=== PATIENT | male | born 1975 | race Caucasian/White ===

== ENCOUNTER 2016-10-10 18:13 | Observation (INO) | payer OTHER ==
[2016-10-10 19:02] LABS: % IMMATURE GRANULYOCYTES 1.5 % (0.0-1.1); ABSOLUTE IMMATURE GRANULOCYTES 0.21 10^3/uL (0.00-0.10); ABSOLUTE NRBC COUNT 0.03 10^3/uL (0-0.01); ADD DIFF? NO; ADD MORPH? NO; ADD SCAN? NO; ATYPICAL LYMPHOCYTE FLAG 0 (0-99); FRAGMENT RBC FLAG 0 (0-99); HEMATOCRIT 27.2 % (40.0-51.0); HEMOGLOBIN 9.3 g/dL (13.7-17.5); LEFT SHIFT FLG 10 (0-99); LIPEMIA HEMOLYSIS FLAG 90 (0-99); MEAN CELL HEMOGLOBIN 30.1 pg (27.9-34.1); MEAN CELL HEMOGLOBIN CONCENTR. 34.2 g/dL (32.4-36.7); MEAN PLATELET VOLUME 9.6 fL (8.7-11.7); NRBC-AUTO% 0.2 % (0.0-0.2); PLATELET CLUMPS FLAG 0 (0-99); PLATELET COUNT 272 10^3/uL (150-400); RED BLOOD CELL COUNT 3.09 10^6/uL (4.40-6.38); RED CELL DISTRIBUTION WIDTH 13.2 % (11.5-15.2)
--- NOTE | 2016-10-10 19:07 | EDPHY ---
HPI/HX/ROS/PE/MDM Narrative: CHIEF COMPLAINT: Black stool, near syncope, nausea. HISTORY OF PRESENT ILLNESS: The patient is a 41-year-old male who presents with 3 days of black stools and a near syncopal episode today. The stools were normal until today when they became tarry. He made an appointment to see his PCP but felt nauseated and had a near syncopal episode this morning. He had cold sweats while lying in bed. He denies abdominal pain, chest pain, shortness of breath. No fever, palpitations, vomiting, urinary complaints, headache, lightheadedness. He did drink a large amount of alcohol this weekend. REVIEW OF SYSTEMS: Aside from elements discussed in the HPI, a comprehensive 10-point review of systems was reviewed and is negative. PAST MEDICAL HISTORY: ADD, hypertension. SOCIAL HISTORY: Moderate alcohol use, smokes cigarettes. VITAL SIGNS: Reviewed by me GENERAL: Well-developed, well-nourished, resting comfortably in no respiratory distress. HEENT: Atraumatic. Eyes: No icterus, no injection. No conjunctival pallor. Mouth: moist mucous membranes. No erythema or lesions. Neck: supple with no adenopathy. LUNGS: Clear to auscultation bilaterally, no wheezes, rhonchi or rales. CARDIAC: Regular rate and rhythm, no rubs, murmurs or gallops. ABDOMEN: Soft, nontender, nondistended, bowel sounds normal. BACK: No CVA tenderness. RECTAL: Melenotic stool. EXTREMITIES: No trauma. No edema. Range of motion is normal throughout. NEURO: Alert and oriented, grossly nonfocal. SKIN: Warm and dry, no rash. PSYCHIATRIC: Normal mentation, no agitation. Portions of this note were transcribed by a medical records assistant. I personally performed a history, physical exam, medical decision making, and confirmed accuracy of information the transcribed note. ED Course: 41-year-old male presents with 3 days of black stool and a near syncopal episode earlier today. His stools were initially formed but became tarry diarrhea today. He tried to go to the doctor but had a near syncopal episode at his house. He reports that he was nauseated, had cold sweats, and was tachycardic at that time. I performed a rectal exam and sent the stool to the lab. His heart rate was 122 on presentation. I have high suspicion for GI bleed in this patient. He is a binge drinker and did drink a large amount of alcohol this weekend. We will check blood work and obtain an EKG. An IV was established. Patient's WBC elevated at 14.44. He is anemic as well, Hgb 9.3 and Hct 27.2. Stool lab returns positive for blood. Plan for admission. 2027: Consulted with Dr. Akbar, gastroenterology. He will consult with the patient in the hospital. 2044: Consulted with Dr. Funez, hospitalist. He accepts admission. The differential diagnosis for the patient's lower GI bleeding included but was not limited to diverticulosis, tumor, AVM, hemorrhoid, and upper GI Bleed. - Data Points Laboratory Results: Laboratory Results 10/10/16 18:55 10/10/16 18:55 10/10/16 10/10/16 10/10/16 19:20 19:18 18:55 WBC RBC Hgb Hct MCV MCH MCHC RDW Plt Count MPV Neut % (Auto) Lymph % (Auto) Riley % (Auto) Eos % (Auto) Baso % (Auto) Nucleat RBC Rel Count Absolute Neuts (auto) Absolute Lymphs (auto) Absolute Monos (auto) Absolute Eos (auto) Absolute Basos (auto) Absolute Nucleated RBC Immature Gran % Immature Gran # Sodium 132 mEq/L L mEq/L (134-144) Potassium 3.6 mEq/L mEq/L (3.5-5.2) Chloride 103 mEq/L mEq/L (97-110) Carbon Dioxide 22 mEq/l mEq/l (22-31) Anion Gap 7 mEq/L L mEq/L (8-16) BUN 43 mg/dL H mg/dL (7-23) Creatinine 1.0 mg/dL mg/dL (0.7-1.3) Estimated GFR > 60 Glucose 104 mg/dL H mg/dL (70-100) Calcium 8.4 mg/dL L mg/dL (8.5-10.4) Stool Occult Bld Scrn POSITIVE H (NEGATIVE) Patient ABO/Rh O POSITIVE Antibody Screen NEGATIVE 10/10/16 18:55 WBC 14.44 10^3/uL H 10^3/uL (3.80-9.50) RBC 3.09 10^6/uL L 10^6/uL (4.40-6.38) Hgb 9.3 g/dL L g/dL (13.7-17.5) Hct 27.2 % L % (40.0-51.0) MCV 88.0 fL fL (81.5-99.8) MCH 30.1 pg pg (27.9-34.1) MCHC 34.2 g/dL g/dL (32.4-36.7) RDW 13.2 % % (11.5-15.2) Plt Count 272 10^3/uL 10^3/uL (150-400) MPV 9.6 fL fL (8.7-11.7) Neut % (Auto) 76.6 % H % (39.3-74.2) Lymph % (Auto) 17.4 % % (15.0-45.0) Riley % (Auto) 4.1 % L % (4.5-13.0) Eos % (Auto) 0.1 % L % (0.6-7.6) Baso % (Auto) 0.3 % % (0.3-1.7) Nucleat RBC Rel Count 0.2 % % (0.0-0.2) Absolute Neuts (auto) 11.07 10^3/uL H 10^3/uL (1.70-6.50) Absolute Lymphs (auto) 2.51 10^3/uL 10^3/uL (1.00-3.00) Absolute Monos (auto) 0.59 10^3/uL 10^3/uL (0.30-0.80) Absolute Eos (auto) 0.02 10^3/uL L 10^3/uL (0.03-0.40) Absolute Basos (auto) 0.04 10^3/uL 10^3/uL (0.02-0.10) Absolute Nucleated RBC 0.03 10^3/uL H 10^3/uL (0-0.01) Immature Gran % 1.5 % H % (0.0-1.1) Immature Gran # 0.21 10^3/uL H 10^3/uL (0.00-0.10) Sodium Potassium Chloride Carbon Dioxide Anion Gap BUN Creatinine Estimated GFR Glucose Calcium Stool Occult Bld Scrn Patient ABO/Rh Antibody Screen General Time Seen by Provider: 10/10/16 18:59 Initial Vital Signs: Initial Vital Signs Temperature (C) 36.7 C 10/10/16 18:26 Heart Rate 122 H 10/10/16 18:26 Respiratory Rate 18 10/10/16 18:26 Blood Pressure 133/105 H 10/10/16 18:26 O2 Sat (%) 98 10/10/16 18:26 O2 Delivery Mode Room Air Allergies/Adverse Reactions: No Known Allergies Allergy (Verified 10/10/16 20:48) Home Medications: Medication Instructions Recorded Dextroamphetamine/Amphetamine 15 - 30 mg PO DAILY 10/10/16 [ADDERALL 15 MG TABLET] Herbals/Supplements -Info Only 1 ea PO DAILY 10/10/16 Zolpidem Tartrate 5 - 10 mg PO HS 10/10/16 Pantoprazole Sodium [Protonix 40mg 40 mg PO BID #60 tab 10/12/16 (*)] Pantoprazole Sodium [Protonix 40mg 40 mg PO DAILY #30 tab 10/12/16 (*)] Departure - Departure Disposition: [facility] Inpatient Acute Clinical Impression: Near syncope GI bleed Qualifiers: GI bleed type/associated pathology: unspecified gastrointestinal hemorrhage type Qualified Code(s): K92.2 - Gastrointestinal hemorrhage, unspecified Anemia Qualifiers: Anemia type: unspecified type Qualified Code(s): D64.9 - Anemia, unspecified Condition: Fair Report Scribed for: Alexsandra Francisco Report Scribed by: John Reane Date of Report: 10/10/16 Time of Report: 19:07
[2016-10-10 19:12] LABS: ANION GAP 7 mEq/L (8-16); CALCIUM 8.4 mg/dL (8.5-10.4); CARBON DIOXIDE 22 mEq/l (22-31); CHLORIDE 103 mEq/L (97-110); GLOMERULAR FILTRATION RATE > 60; GLUCOSE 104 mg/dL (70-100); POTASSIUM 3.6 mEq/L (3.5-5.2); SODIUM 132 mEq/L (134-144)
[2016-10-10] MEDS ORDERED: PANTOPRAZOLE SODIUM 40 MG in NS 100 ML IV ONE (20:17)
--- NOTE | 2016-10-10 21:02 | CPEKG ---
Heart Rate: 84 RR Interval: 714 P-R Interval: 132 QRSD Interval: 98 QT Interval: 416 QTC Interval: 492 P Newton: 66 QRS Newton: 23 T Wave Newton: 21 EKG Severity - BORDERLINE ECG - EKG Impression: SINUS RHYTHM EKG Impression: BORDERLINE PROLONGED QT INTERVAL Electronically Signed By: Alexsandra Francisco 10-Oct-2016 21:36:46
[2016-10-10] MEDS ORDERED: chlordiazePOXIDE 25 MG CAP PO PRN (22:09)
[2016-10-10] MEDS ORDERED: ONDANSETRON 4 MG/2 ML VIAL IVP PRN (22:11)
[2016-10-10] MEDS ORDERED: NS 1,000 ML IV SCH (22:15)
[2016-10-11] MEDS: LORazepam 2 MG/ML INJ IVP PRN ×2 (00:36→19:47)
[2016-10-11 01:07] LABS: HEMATOCRIT 20.9 % (40.0-51.0); HEMOGLOBIN 7.1 g/dL (13.7-17.5)
--- NOTE | 2016-10-11 02:27 | GHP ---
[f rep st] HISTORY AND PHYSICAL DATE OF ADMISSION: 10/10/2016 CHIEF COMPLAINT: Tarry stools. HISTORY: The patient is a 41-year-old male, who has noticed his stools are black for the last 3 day s. Initially, they were formed, but they have subsequently become loose for the last 24 hours. He called his primary care doctor with an intent to see him for outpatient evaluation, but on his way, he developed a near-syncopal episode with nausea and cold sweats, and instead he presented to the ergency room. There has been no abdominal pain, but he does feel like his abdomen feels firm. Ther e has been no weight loss. He did drink quite a bit of alcohol this weekend because he went to open on Monday, but his typical alcohol use is mostly social, with just happy hour s and with friends. PAST MEDICAL HISTORY: Negative. MEDICATIONS: None. ALLERGIES: No known drug allergies. SOCIAL HISTORY: He smokes socially. He drinks socially. He lives alone. He works in [employer], which is a [employer] business. REVIEW OF SYSTEMS: Complete review of systems obtained. Review of systems is negative regarding co nstitutional, HEENT, GI, pulmonary, cardiovascular, , hematology, skin, musculoskeletal, endocrine , psychiatric, except for positives and negatives as in HPI. FAMILY HISTORY: Reviewed and noncontributory to presenting complaint. PHYSICAL EXAMINATION: GENERAL: Well-developed, well-nourished male, in no acute distress. VITAL S IGNS: Temperature is 36.7, pulse 122, blood pressure 140/87, saturating 97% on room air. EYE EXAMI NATION: Normal conjunctivae. Pupils react light. ENT: Normal ears and nose. Hearing intact. No rmal lips and teeth. Oropharynx moist. NECK: Trachea is midline. No thyromegaly. CHEST: Normal respiratory effort. LUNGS: Clear to auscultation bilaterally. CARDIOVASCULAR SYSTEM: Regular ra te and rhythm. No murmur. No lower extremity edema. ABDOMEN: Soft, nontender. No hepatosplenome farheen. SKIN: Warm, dry, intact. No rash. MUSCULOSKELETAL: No cyanosis or clubbing. Strength 5/5 , upper and lower extremities. NEURO EXAMINATION: Cranial nerves intact. Normal sensation to ligh t touch. PSYCH ASSESSMENT: Alert and oriented x3. Normal mood and affect. Normal judgment and in sight. Normal memory. LABORATORY DATA: White count 14.44, hematocrit 27.2, platelets 272. Sodium 132, potassium 3.6, chl oride 103, bicarb 22, BUN 43, creatinine 1, glucose 104. IMAGING STUDIES: EKG viewed by me. My personal interpretation is normal sinus rhythm. No ST or T- wave changes. This case was discussed with Dr. Francisco, emergency room physician, regarding need for admission. She did consult Gastroenterology and spoke with Dr. Akbar, who will see the patient. ASSESSMENT AND PLAN: 1. Upper gastrointestinal bleed. Gastroenterology is consulted and anticipate EGD in the morning. I will keep him n.p.o. We will place him on IV proton pump inhibitor. 2. Acute blood loss anemia. Continue to follow his serial H and H. 3. Leukocytosis. I suspect this is reactive and I do not see any signs of infection. This will be followed. 4. Alcohol use. I suspect this is just modest alcohol and I highly doubt he will undergo withdrawa l or that he has any underlying liver disease. I will, however, check his LFTs. 5. Obesity. BMI 35. He was previously on a weight loss drug, but is not taking it currently. CODE STATUS: Full. ADMISSION STATUS: We will admit to observation and depending on clinical course, we may be able to discharge tomorrow. DVT PROPHYLAXIS: He is low risk and he is presenting with GI bleed, so I would hold off on any phar macologic prophylaxis at this time. /[id number]/MODL
[2016-10-11 05:28] LABS: % IMMATURE GRANULYOCYTES 1.1 % (0.0-1.1); ABSOLUTE IMMATURE GRANULOCYTES 0.09 10^3/uL (0.00-0.10); ABSOLUTE NRBC COUNT 0.02 10^3/uL (0-0.01); ADD DIFF? NO; ADD MORPH? NO; ADD SCAN? NO; ATYPICAL LYMPHOCYTE FLAG 10 (0-99); FRAGMENT RBC FLAG 0 (0-99); HEMATOCRIT 20.7 % (40.0-51.0); LEFT SHIFT FLG 0 (0-99); LIPEMIA HEMOLYSIS FLAG 90 (0-99); MEAN CELL HEMOGLOBIN 30.4 pg (27.9-34.1); MEAN CELL HEMOGLOBIN CONCENTR. 33.8 g/dL (32.4-36.7); MEAN PLATELET VOLUME 9.8 fL (8.7-11.7); NRBC-AUTO% 0.2 % (0.0-0.2); PLATELET CLUMPS FLAG 0 (0-99); PLATELET COUNT 198 10^3/uL (150-400); RED CELL DISTRIBUTION WIDTH 13.3 % (11.5-15.2)
[2016-10-11 05:42] LABS: ALANINE AMINOTRANSFERASE 54 IU/L (21-72); ALBUMIN 2.5 g/dL (3.5-5.0); ALKALINE PHOSPHATASE 39 IU/L (38-126); ANION GAP 5 mEq/L (8-16); ASPARTATE AMINOTRANSFERASE 41 IU/L (17-59); BILIRUBIN,TOTAL 0.3 mg/dL (0.1-1.4); BILIRUBIN-CONJUGATED 0.2 mg/dL (0.0-0.5); BILIRUBIN-UNCONJUGATED 0.1 mg/dL (0.0-1.1); CALCIUM 7.6 mg/dL (8.5-10.4); CARBON DIOXIDE 21 mEq/l (22-31); CHLORIDE 110 mEq/L (97-110); CREATININE 0.9 mg/dL (0.7-1.3); GLOMERULAR FILTRATION RATE > 60; GLUCOSE 88 mg/dL (70-100); INR 1.02 (0.83-1.16); MAGNESIUM 1.9 mg/dL (1.6-2.3); POTASSIUM 3.9 mEq/L (3.5-5.2); PROTIME(PATIENT) 13.3 SEC (12.0-15.0); SODIUM 136 mEq/L (134-144); TOTAL PROTEIN 4.6 g/dL (6.3-8.2)
[2016-10-11] MEDS: ACETAMINOPHEN 325 MG TAB PO PRN ×2 (08:29→17:53)
[2016-10-11] MEDS: PANTOPRAZOLE SODIUM 40 MG in NS 100 ML IV SCH ×2 (08:30→19:47)
[2016-10-11] MEDS: NICOTINE 14 MG/24 HR PATCH TD SCH (08:47)
[2016-10-11] MEDS: AMPHETAMINE PO SCH (08:47)
[2016-10-11] MEDS: DEXTROAMPHETAMINE PO SCH (08:47)
--- NOTE | 2016-10-11 10:17 | HOSPPROG ---
Hospitalist Progress Note Assessment/Plan: 41 yo M w likely UGIB UGIB: suspect bleeding has stopped given falling bun and stable hct etiology is likely nsaids and alcohol egd today bid ppi acute blood loss anemia: 2/2 ugib give 1 unit now alcohol: suspect heavy social use w low risk of withdrawal but will follow htn: outpt follow up proph: pharm VTE proph contraindicated low risk for VTE dispo: pending results of egd Subjective: no vomiting or further black stool. case d/w dr disla. no events tele (interp by me) Objective: Vital Signs Temp Pulse Resp BP Pulse Ox 36.6 C 97 16 133/81 H 98 10/11/16 07:18 10/11/16 07:18 10/11/16 07:18 10/11/16 07:18 10/11/16 07:18 Laboratory Results 10/11/16 05:05 10/11/16 05:05 10/10/16 10/11/16 10/12/16 05:59 05:59 05:59 Intake Total 1600 Output Total 600 Balance 1000 PT 13.3 SEC (12.0-15.0) 10/11/16 05:05 INR 1.02 (0.83-1.16) 10/11/16 05:05 - Physical Exam Constitutional: no apparent distress, appears nourished Eyes: PERRL, anicteric sclera Ears, Nose, Mouth, Throat: moist mucous membranes, hearing normal Cardiovascular: regular rate and rhythym, no murmur, rub, or gallop, No tachycardia Respiratory: no respiratory distress, no rales or rhonchi Gastrointestinal: normoactive bowel sounds, soft, non-tender abdomen Genitourinary: no bladder fullness, No seth in urethra Skin: warm, normal color Musculoskeletal: full muscle strength, no muscle tenderness Neurologic: AAOx3 ICD10 Worksheet Patient Problems: Problems Problem Status Onset Anemia Acute GI bleed Acute Near syncope Acute
[2016-10-11] MEDS ORDERED: MIDAZOLAM 2 MG/2 ML VIAL ONE (12:20)
[2016-10-11] MEDS ORDERED: fentaNYL 100 MCG/2 ML INJ ONE (12:23)
[2016-10-11] MEDS ORDERED: PROPOFOL 200 MG/20 ML VIAL ONE ×3 (12:23)
[2016-10-11] MEDS ORDERED: LIDOCAINE 2% 5 ML SDV ONE (12:28)
--- NOTE | 2016-10-11 12:45 | SOAPPROG ---
SOAP Progress Note Assessment/Plan: Assessment:EGD shows MW tear with fresh clot. Able to close defect with one Resolution clip. No active bleeding noted. Plan:Zofran q4 x 24 hour, either IV or SL. 4 weeks of PPIs. OK to go home when stable. 10/11/16 12:44 Objective: Vital Signs Temp Pulse Resp BP Pulse Ox 36.6 C 93 18 136/83 H 97 10/11/16 11:08 10/11/16 11:08 10/11/16 11:08 10/11/16 11:08 10/11/16 11:08 Laboratory Results 10/11/16 05:05 10/11/16 05:05 10/10/16 10/11/16 10/12/16 05:59 05:59 05:59 Intake Total 1600 356 Output Total 600 Balance 1000 356 PT 13.3 SEC (12.0-15.0) 10/11/16 05:05 INR 1.02 (0.83-1.16) 10/11/16 05:05 ICD10 Worksheet Patient Problems: Problems Problem Status Onset Anemia Acute GI bleed Acute Near syncope Acute
[2016-10-11] MEDS: ONDANSETRON 4 MG/2 ML VIAL IVP SCH ×3 (14:49→20:45)
--- NOTE | 2016-10-11 16:14 | GPN ---
[f rep st] PROCEDURE NOTE PROCEDURE PERFORMED: Gastroscopy with biopsies and endoclipping. INDICATIONS: The patient is a 41-year-old male who was admitted yesterday with melena and a hemoglo bin which was 9.3, down from 15.4 earlier in the year. The patient had had an episode of binge drin dipak earlier in the week. He has also had some nausea. He takes Advil and aspirin regularly. Mai roscopy is being performed to evaluate and treat. DESCRIPTION OF PROCEDURE: After proper consent was obtained, patient was placed in left lateral dec ubitus position, received IV general anesthesia. Video gastroscope was introduced through the mouth, down the esophagus, into the stomach, past the p ylorus, into the duodenal. Findings were as follows: 1. Esophagus is normal with no varices noted. 2. The patient has a 3 cm hiatal hernia sac within which is a Josie-Linder tear. It is not active ly bleeding, but has some fresh clot on it. An Endo clip was used to bridge the tear and close it. No bleeding was seen after this. The remainder of the stomach appeared normal as did the duodenum. Biopsies were taken to rule out H pylori. At this point, instrument was removed. The patient tolerated procedure well. He was returned to re covery room in stable condition. RECOMMENDATIONS: 1. Patient should stay on proton pump inhibitors for a month. 2. I would have the patient take Zofran either IV or sublingual every 4 hours for the next 24 hours to prevent any retching leading to early re-tearing. 3. Patient should avoid excessive usage of aspirin and Advil products. Copy requested to: Dr. Rowland /[id number]/MODL
[2016-10-12 00:03] VITALS: RESP 18
[2016-10-12] MEDS: ONDANSETRON 4 MG/2 ML VIAL IVP SCH ×2 (02:04→06:28)
[2016-10-12 04:54] LABS: % IMMATURE GRANULYOCYTES 1.4 % (0.0-1.1); ABSOLUTE IMMATURE GRANULOCYTES 0.11 10^3/uL (0.00-0.10); ABSOLUTE NRBC COUNT 0.05 10^3/uL (0-0.01); ADD DIFF? NO; ADD MORPH? NO; ADD SCAN? NO; ATYPICAL LYMPHOCYTE FLAG 0 (0-99); FRAGMENT RBC FLAG 0 (0-99); HEMATOCRIT 24.8 % (40.0-51.0); HEMOGLOBIN 8.3 g/dL (13.7-17.5); LEFT SHIFT FLG 10 (0-99); LIPEMIA HEMOLYSIS FLAG 80 (0-99); MEAN CELL HEMOGLOBIN 29.9 pg (27.9-34.1); MEAN CELL HEMOGLOBIN CONCENTR. 33.5 g/dL (32.4-36.7); MEAN CELL VOLUME 89.2 fL (81.5-99.8); MEAN PLATELET VOLUME 9.8 fL (8.7-11.7); NRBC-AUTO% 0.6 % (0.0-0.2); PLATELET CLUMPS FLAG 0 (0-99); PLATELET COUNT 218 10^3/uL (150-400); RED BLOOD CELL COUNT 2.78 10^6/uL (4.40-6.38); RED CELL DISTRIBUTION WIDTH 14.7 % (11.5-15.2)
[2016-10-12 05:22] LABS: ANION GAP 5 mEq/L (8-16); CALCIUM 8.3 mg/dL (8.5-10.4); CARBON DIOXIDE 24 mEq/l (22-31); CHLORIDE 110 mEq/L (97-110); GLOMERULAR FILTRATION RATE > 60; GLUCOSE 92 mg/dL (70-100); POTASSIUM 3.8 mEq/L (3.5-5.2); SODIUM 139 mEq/L (134-144)
[2016-10-12] MEDS: ACETAMINOPHEN 325 MG TAB PO PRN (06:32)
[2016-10-12] MEDS: THIAMINE HCL 500 MG in NS 100 ML IV SCH ×2 (06:54→07:58)
[2016-10-12] MEDS: NICOTINE 14 MG/24 HR PATCH TD SCH (07:36)
[2016-10-12] MEDS: AMPHETAMINE PO SCH (07:36)
[2016-10-12] MEDS: DEXTROAMPHETAMINE PO SCH (07:36)
[2016-10-12 07:46] VITALS: BP 134/79; PULSE 92; TEMP 98; O2SAT 96
[2016-10-12] MEDS: PANTOPRAZOLE SODIUM 40 MG in NS 100 ML IV SCH (07:46)
[2016-10-12] MEDS ORDERED: ADDERALL 10 MG TAB PO SCH (09:00)
--- NOTE | 2016-10-12 09:36 | HOSPPROG ---
Hospitalist Progress Note Assessment/Plan: 41 yo M w likely UGIB UGIB: suspect bleeding has stopped given falling bun and stable hct etiology is likely nsaids and alcohol egd today bid ppi acute blood loss anemia: 2/2 ugib give 1 unit now alcohol: suspect heavy social use w low risk of withdrawal but will follow htn: outpt follow up proph: pharm VTE proph contraindicated low risk for VTE dispo: home today > 30 minutes Subjective: hct stable. eating Objective: Vital Signs Temp Pulse Resp BP Pulse Ox 36.7 C 92 18 134/79 H 96 10/12/16 07:45 10/12/16 07:45 10/12/16 07:45 10/12/16 07:45 10/12/16 07:45 Laboratory Results 10/12/16 04:21 10/12/16 04:21 10/11/16 10/12/16 10/13/16 05:59 05:59 05:59 Intake Total 1600 2586 Output Total 600 2 Balance 1000 2584 PT 13.3 SEC (12.0-15.0) 10/11/16 05:05 INR 1.02 (0.83-1.16) 10/11/16 05:05 - Physical Exam Constitutional: no apparent distress, appears nourished Eyes: PERRL, anicteric sclera Ears, Nose, Mouth, Throat: moist mucous membranes, hearing normal Cardiovascular: regular rate and rhythym, no murmur, rub, or gallop, No tachycardia Respiratory: no respiratory distress, no rales or rhonchi Gastrointestinal: normoactive bowel sounds, soft, non-tender abdomen Genitourinary: No seth in urethra Skin: warm, normal color Musculoskeletal: full muscle strength, no muscle tenderness Neurologic: AAOx3 ICD10 Worksheet Patient Problems: Problems Problem Status Onset Anemia Acute GI bleed Acute Near syncope Acute
--- NOTE | 2016-10-12 09:56 | GDS ---
[f rep st] DISCHARGE SUMMARY DISCHARGE DIAGNOSES: 1. Upper gastrointestinal bleed secondary to Josie-Linder tear. 2. Acute blood loss anemia. Please see admission history and physical by Dr. Ceci Jackson. The patient presented with melena and shortness of breath. He had some binge style alcohol behavior over the weekend, may have had so me vomiting. It sounds like he drinks a couple days a week. He takes intermittent NSAIDs as well. He had the aforementioned study showing a Josie-Linder tear and some diffuse gastritis. He receiv ed 1 unit of packed red cells for a hemoglobin of 7.1, it came up to 8.3. Iron studies were not sen t. Coags were normal. LFTs were normal. The patient was discharged home with a twice daily PPI fo r 1 month and then 2 months of daily PPI. Advised to moderate his binge style alcohol behavior. Di d not have alcohol withdrawal here. I do not suspect he is an alcoholic. /[id number]/MODL
[2016-10-13] MEDS ORDERED: THIAMINE HCL 100 MG TAB PO SCH (09:00)
== END 2016-10-12 10:22 | disposition home or self-care (01) ==
LOC: F2W 21:58
PROVIDERS: ADMIT Internal Medicine; ATTEND Internal Medicine
PROC: 0W3P8ZZ Control Bleeding in Gastrointestinal Tract, Via Natural or Artificial Opening Endoscopic (ICD-10-PCS; principal; 2016-10-10)
PROC: 0DB68ZX Excision of Stomach, Via Natural or Artificial Opening Endoscopic, Diagnostic (ICD-10-PCS; principal; 2016-10-10)
PROC: 30233N1 Transfusion of Nonautologous Red Blood Cells into Peripheral Vein, Percutaneous Approach (ICD-10-PCS; 2016-10-11)
DX: K92.2 Gastrointestinal hemorrhage, unspecified (principal); D62 Acute posthemorrhagic anemia; K22.6 Gastro-esophageal laceration-hemorrhage syndrome; F10.10 Alcohol abuse, uncomplicated; K92.1 Melena; R55 Syncope and collapse; I10 Essential (primary) hypertension; F17.210 Nicotine dependence, cigarettes, uncomplicated; D72.829 Elevated white blood cell count, unspecified; K44.9 Diaphragmatic hernia without obstruction or gangrene; E66.9 Obesity, unspecified; Z68.35 Body mass index [BMI] 35.0-35.9, adult
CPT/HCPCS: 43239; 43255; 93005; G0378; P9016; 96365; J2060; J2250; J2405; J2704; J3010; J3411